=== PATIENT | female | born 1965 | race Two or more races ===

== ENCOUNTER 2021-02-27 15:07 | Emergency (ER) | payer OTHER ==
[~2021-02-27] VITALS: Ht 154.9 cm; Wt 65.1 kg
[2021-02-27] MEDS ORDERED: IBUPROFEN 800 MG TABLET ONE (17:08)
[2021-02-27] MEDS ORDERED: IBUPROFEN 800 MG TABLET PO ONE (17:30)
[2021-02-27 17:44] LABS: MEAN CORPUSCULAR HEMOGLOBIN 19.6 pg (27.0-34.8); MEAN CORPUSCULAR HGB CONC 31.3 g/dL (32.4-35.8); MEAN PLATELET VOLUME 8.4 fL (7.4-10.4); PLATELET COUNT 204 x10^3/uL (130-400); RED BLOOD COUNT 6.08 x10^6/uL (3.82-5.3); RED CELL DISTRIBUTION WIDTH 15.5 % (9.6-15.2)
[2021-02-27 17:54] LABS: ALANINE AMINOTRANSFERASE 59 U/L (12-78); ALBUMIN 3.3 g/dL (3.4-5.0); ANION GAP 10 mmol/L (5-15); CALCIUM 8.8 mg/dL (8.5-10.1); CHLORIDE 98 mmol/L (98-107); CREATININE 0.74 mg/dL (0.55-1.02)
[2021-02-27 17:56] LABS: ALKALINE PHOSPHATASE 142 U/L (45-117); BILIRUBIN,TOTAL 0.7 mg/dL (0.2-1.0); TOTAL PROTEIN 8.6 g/dL (6.4-8.2)
--- NOTE | 2021-02-27 18:14 | NUR ---
PT AMBULATED WITH PULSE OX. RA SAT 94% WITH AMBULATION. VS UPDATED IN COMPUTER. COVID SWAB COLLECTED/WALKED TO LAB. PT STATES FEELING BETTER, VALERO DIMINISHED.
[2021-02-27 18:15] VITALS: BP 132/65
[2021-02-27 18:32] LABS: MD YES
[2021-02-27 18:34] LABS: BAND#(MANUAL) 0.58 x10^3/uL; BANDS%(MANUAL) 3 % (0-7); EOS#(MANUAL) 0.39 x10^3/uL (0.0-0.4); EOS% (MANUAL) 2 % (1-7); LYMPH#(MANUAL) 0.97 x10^3/uL (1-3.4); LYMPHS% (MANUAL) 5 % (22-44); MONOS#(MANUAL) 0.19 x10^3/uL (0.3-2.7); MONOS% (MANUAL) 1 % (2-9); SEG#(MANUAL) 17.18 x10^3/uL (1.8-6.8); SEGS% (MANUAL) 89 % (42-75)
[2021-02-27 18:35] LABS: <PLATELET ESTIMATE> ADEQUATE
[2021-02-27 18:36] LABS: <RBC MORPHOLOGY> NORMAL; LARGE PLATELETS 1+
[2021-02-27] MEDS ORDERED: ALBUTEROL HFA 90 MCG/SPRAY INH PRN (19:00)
== END 2021-02-27 19:27 | disposition home or self-care (01) ==
LOC: ED 19:02
DX: J18.9 Pneumonia, unspecified organism (principal); Z20.822 Contact with and (suspected) exposure to COVID-19; R05 Cough; I10 Essential (primary) hypertension
CPT/HCPCS: 36415; 71045; 80053; 84145; 85025; 94640; 99284; U0003; U0005